=== PATIENT | female | born 1990 | race Caucasian/White ===

== ENCOUNTER 2016-05-07 06:13 | Day surgery (SDC) | payer BC ==
[2016-05-03 11:25] LABS: HCG,QUAL RESULT NEGATIVE (NEGATIVE)
[~2016-05-07] VITALS: Ht 162.6 cm; Wt 69.9 kg
[2016-05-07 06:30] VITALS: O2SAT 99
[2016-05-07] MEDS ORDERED: LR 1,000 ML IV SCH (08:19)
[2016-05-07] MEDS ORDERED: METOCLOPRAMIDE HCL 10 MG/2 ML VIAL IVP PRN (08:30)
[2016-05-07] MEDS ORDERED: MORPHINE 2 MG/ML INJ. SYRINGE IVP PRN ×3 (08:30)
[2016-05-07 12:06] VITALS: BP 116/80; PULSE 63; RESP 16
[2016-05-07] MEDS ORDERED: DEXAMETHASONE SOD PHOSPHATE 4 MG/ML VIAL ONE (14:00)
[2016-05-07] MEDS ORDERED: BACITRACIN ZINC 15 GM TOPICAL OINTMENT TP ONE (14:00)
[2016-05-07] MEDS ORDERED: OXYMETAZOLINE HCL 0.05% NASAL SPRAY NS ONE (14:00)
[2016-05-07] MEDS ORDERED: ONDANSETRON HCL 4 MG/2 ML VIAL ONE (14:00)
[2016-05-07] MEDS ORDERED: LR 1,000 ML IV.SOLN IV ONE (14:00)
[2016-05-07] MEDS ORDERED: EPINEPHrine 1 MG/ML AMP ONE (14:00)
[2016-05-07] MEDS ORDERED: ROCURONIUM BROMIDE 10 MG/ML (ZEMURON) ONE (14:00)
[2016-05-07] MEDS ORDERED: MIDAZOLAM HCL 5 MG/5 ML VIAL ONE (14:00)
[2016-05-07] MEDS ORDERED: NS IRRIG SOLN 1000 ML IR ONE (14:00)
[2016-05-07] MEDS ORDERED: PROPOFOL 200MG/ 20ML VIAL (DIPRIVAN) IV ONE (14:00)
[2016-05-07] MEDS ORDERED: fentaNYL CITRATE 250 MCG/5 ML AMP ONE (14:00)
[2016-05-07] MEDS ORDERED: LIDOCAINE/EPI 1% 1:100000 20 ML VIAL INJ ONE (14:00)
[2016-05-07] MEDS ORDERED: MUPIROCIN 2% TOPICAL OINTMENT 22 GM TP ONE (14:00)
[2016-05-07] MEDS ORDERED: SEVOFLURANE 15 MIN GAS INH ONE (14:00)
== END 2016-05-07 11:28 | disposition home or self-care (01) ==
LOC: SDS 06:13 → SMU 06:15 → SDS 11:28
PROVIDERS: ATTEND Otolaryngology
DX: J34.2 Deviated nasal septum (principal); J32.0 Chronic maxillary sinusitis; J34.89 Other specified disorders of nose and nasal sinuses
CPT/HCPCS: 30520; 31256; 84703; 88304; 88311; J0171; J1100; J2250; J2405; J2704; J3010; J7120